=== PATIENT | male | born 1970 | race Caucasian/White ===

== ENCOUNTER 2018-01-08 15:17 | Emergency (ER) | payer BC, OTHER ==
[2018-01-08] MEDS ORDERED: HEPARIN PREMIX 25,000 UNITS in PREMIX BAG 1 BAG IVS SCH (15:45)
[2018-01-08] MEDS ORDERED: ASPIRIN (CHEWABLE) 81 MG TAB ONE (15:46)
[2018-01-08] MEDS ORDERED: AMIODARONE IV (LOAD) 150 MG in DEXTROSE 5% 100ML 100 ML IVPB ONE (15:48)
[2018-01-08 15:52] VITALS: TEMP 96.5
[2018-01-08] MEDS ORDERED: AMIODARONE HCL 150 MG/3 ML VIAL IVPB ONE (15:54)
[2018-01-08] MEDS ORDERED: DEXTROSE 5% 100ML 100 ML IVPB ONE (15:54)
[2018-01-08] MEDS ORDERED: HEPARIN PREMIX 500 ML ONE (15:55)
[2018-01-08] MEDS ORDERED: AMIODARONE IV (MAINT) 900 MG in DEXTROSE 5% (AVIVA) 500ML 500 ML IVPB SCH (16:00)
--- NOTE | 2018-01-08 16:04 | ED.PDOC ---
History of Present Illness - General Chief Complaint: Chest Pain/MA Stated Complaint: chest discomfort Time Seen by Provider: 01/08/18 15:44 Source: patient, family Exam Limitations: no limitations - History of Present Illness Initial Comments: ACUTE ONSET OF CHEST PAIN ONSET AT 1330 HRS ASSOCIATED WITH DIAPHORESIS. HE RATES THE PAIN AT A 7/10, FEELS PRETTY MUCH HIS GERD PAIN. HE CONTINUED TO SWEAT PROFUSELY SO HE DECIDED TO COME TO THE ED. Timing/Duration: 1-3 hours Severity/Quality: dull, pressure, tightness, other - 7/10 Location: substernal Chest Pain Radiation: no radiation Activities at Onset: none Improving Factors: nothing Worsening Factors: nothing Aspirin Treatment Today: 81 mg x 4 Associated Symptoms: diaphoresis, fatigue, heartburn, nausea/vomiting Allergies/Adverse Reactions: Allergies NO KNOWN ALLERGY Allergy (Verified 01/08/18 15:52) Review of Systems - Review of Systems Constitutional: States: no symptoms reported EENTM: States: no symptoms reported Respiratory: States: no symptoms reported Cardiology: States: chest pain Gastrointestinal/Abdominal: States: no symptoms reported Genitourinary: States: no symptoms reported Musculoskeletal: States: no symptoms reported Skin: States: other - CLAMMY Endocrine: States: no symptoms reported Hematologic/Lymphatic: States: no symptoms reported Past Medical History (General) - Patient Medical History Hx Stroke: No Hx Congestive Heart Failure: No Hx Hypertension: Yes Hx Diabetes: No - Vaccination History Hx Influenza Vaccination: No - Social History Hx Tobacco Use: No Family Medical History - Family History Father Family History: Unknown Living Status: Still Living Physical Exam - Physical Exam General Appearance: Alert, Other - MODERATE DISTRESS Eyes, Ears, Nose, Throat Exam: PERRL/EOMI, normal ENT inspection, TMs normal, pharynx normal Neck: non-tender, full range of motion, supple, normal inspection Respiratory: lungs clear, normal breath sounds, no respiratory distress, no accessory muscle use, respiratory distress Cardiovascular/Chest: normal peripheral pulses, regular rate, rhythm, no edema, no gallop, no JVD, no murmur Peripheral Pulses: radial,right: 2+, radial,left: 2+ Gastrointestinal/Abdominal: normal bowel sounds, non tender, soft, no organomegaly, no pulsatile mass Rectal Exam: deferred Neurologic: no motor/sensory deficits, alert, oriented x 3 Skin Exam: normal color Lymphatic: no adenopathy Progress - Progress Progress: 01/08/18 16:24 STILL WITH CHEST DISCOMFORT. TROP I IS ELEVATED AT 0.22. EKG: HR OF 58, MO INTERVAL OF 168, QRS OF 86, QTC OF 422, AXIS OF 42 DEGREES, IMPRESSION: ACUTE INFERIOR WALL MA, ACUTE LATERAL WALL MA. - EKG/XRAY/CT EKG: Atrial, Sinus, ST elevation, Abnormal Q waves Departure - Departure Clinical Impression: Acute myocardial infarction Qualifiers: Myocardial infarction ST status: ST elevation myocardial infarction Involved coronary artery: unspecified coronary artery Qualified Code(s): I21.3 - ST elevation (STEMI) myocardial infarction of unspecified site Time of Disposition: 16:42 Disposition: Discharge to Home or Self Care Condition: Serious Departure Forms: ED Discharge - Pt. Copy, Patient Portal Self Enrollment Instructions: DI for Chest Pain Critical Care Note - Critical Care Note Total Time (mins): 70 Comments: CRITICAL EVENT: CHEST PAIN CRITICAL FINDINGS, ACUTE INFEROLATERAL MA, RUNS OF V. TACH CRITICAL ACTIONS, IV AMIODARONE, BOLUS AND DRIP, ASPIRIN, IV NITRATES, IV HEPARIN, IV TNK, TRANSFER TO [facility] UNDER THE CARE OF DR. 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
[2018-01-08] MEDS ORDERED: AMIODARONE HCL 900 MG/18 ML VIAL IVPB ONE (16:20)
[2018-01-08] MEDS ORDERED: DEXTROSE 5% 1000ML 1,000 ML IVS ONE (16:27)
[2018-01-08] MEDS ORDERED: NITROGLYCERIN/D5W IV 50,000 MCG in PREMIX BOTTLE 1 BOTTLE IVS SCH (16:30)
[2018-01-08] MEDS ORDERED: NITROGLYCERIN/D5W IV 250 ML IVS ONE (16:38)
[2018-01-08] MEDS ORDERED: TENECTEPLASE 50 MG VIAL ONE (16:38)
[2018-01-08] MEDS ORDERED: ASPIRIN (CHEWABLE) 81 MG TAB PO ONE (16:51)
[2018-01-08] MEDS ORDERED: TENECTEPLASE 50 MG VIAL IV ONE (16:52)
--- NOTE | 2018-01-08 17:02 | RAD ---
EXAM DESCRIPTION: Chest,1 View CLINICAL HISTORY: 47 years Male CHEST PAIN COMPARISON: None. FINDINGS: The cardiomediastinal silhouette appears unremarkable. No consolidating infiltrates or pleural effusions. No pneumothorax. IMPRESSION: No acute abnormality is identified. Electronically signed by: Toro Anaya MD 01/08/2018 5:00 PM CDT
[2018-01-08 17:33] VITALS: O2SAT 100
[2018-01-08 17:47] VITALS: BP 140/88
== END 2018-01-08 17:46 | disposition home or self-care (01) ==
LOC: ER 15:17
DX: I21.09 ST elevation (STEMI) myocardial infarction involving other coronary artery of anterior wall (principal); I10 Essential (primary) hypertension; K21.9 Gastro-esophageal reflux disease without esophagitis
CPT/HCPCS: 36415; 71045; 80053; 84484; 85025; 85610; 85730; J0282; J1644; J3101; J7060